=== PATIENT | female | born 1965 | race Caucasian/White ===

== ENCOUNTER 2016-08-19 13:08 | Emergency (ER) | payer OTHER ==
[~2016-08-19] VITALS: Ht 175.3 cm; Wt 119.0 kg
[~2016-08-19 13:08] MED LIST: AUG875 PO; DIVA500T7 PO; HC1C30 TOP; HYDR-3498 PO; HYDR-762 PO; LORA-441 PO; LORA1TAB PO; MAG355OR15 PO; METO100T13 PO; NIFE90TA21 PO; NOV SC; ONDA4TAB35 PO; ZOF8 PO
[2016-08-19 14:04] VITALS: Ht 175.3 cm; Wt 119.0 kg
[2016-08-19] MEDS ORDERED: ONDANSETRON (ODT) 4 MG TAB ODT STA (19:24)
[2016-08-19] MEDS ORDERED: HYDROmorphONE 1 MG/ML SYG IM STA (19:24)
[2016-08-19] MEDS ORDERED: NICARDipine HCL 30 MG CAPSULE PO ONE (19:30)
[2016-08-19 19:52] LABS: ADD SCAN DIFF NO; BASOPHILS % 0.5 % (0.0-2.0); EOSINOPHILS # 0.1 10^3/ul (0.0-0.5); HEMATOCRIT 37.5 % (37.0-47.0); HEMOGLOBIN 12.4 g/dl (12.0-16.0); LYMPHOCYTES # 1.5 10^3/ul (0.8-2.9); MEAN CORPUSCULAR HEMOGLOBIN 27.9 pg (29.0-33.0); MEAN CORPUSCULAR HGB CONC 33.1 g/dl (32.0-37.0); MEAN CORPUSCULAR VOLUME 84.5 fl (82.0-101.0); MEAN PLATELET VOLUME 9.6 fl (7.4-10.4); MONOCYTE # 0.4 10^3/ul (0.3-0.9); NEUTROPHIL # 5.2 10^3/ul (1.6-7.5); NEUTROPHILS % 71.4 % (39.0-77.0); PLATELET COUNT 285 10^3/UL (140-415); RED BLOOD COUNT 4.44 10^6/ul (4.20-5.40); RED CELL DISTRIBUTION WIDTH 13.8 % (11.5-14.5); WHITE BLOOD COUNT 7.3 10^3/ul (4.8-10.8)
[2016-08-19 20:04] LABS: ALBUMIN 4.7 g/dl (3.3-4.9); CHLORIDE 102 mmol/L (97-110); SODIUM 141 mmol/L (135-144)
[2016-08-19 20:05] LABS: POTASSIUM 3.6 mmol/L (3.5-5.1)
[2016-08-19 20:07] LABS: ALBUMIN/GLOBULIN RATIO 1.51; ALKALINE PHOSPHATASE 83 IU/L (42-121); ANION GAP 18 (8-16); ASPARTATE AMINO TRANSFERASE 17 IU/L (15-46); BILIRUBIN,INDIRECT 0.6 mg/dl (0-1.1); BILIRUBIN,TOTAL 0.6 mg/dl (0.2-1.3); BLOOD UREA NITROGEN 9 mg/dl (7-20); CARBON DIOXIDE 25 mmol/L (21-31); CREATININE 0.53 mg/dl (0.44-1.00); TOTAL PROTEIN 7.8 g/dl (6.1-8.1)
[2016-08-19 20:08] LABS: ALANINE AMINOTRANSFERASE 27 IU/L (13-69); CALCIUM 10.1 mg/dl (8.4-10.2); GLUCOSE 195 mg/dl (70-220)
[2016-08-19 20:10] LABS: ADD UMIC YES; URINE BILIRUBIN (Dip) NEGATIVE (NEGATIVE); URINE BLOOD (Dip) 3+ (NEGATIVE); URINE COLOR YELLOW (YELLOW); URINE GLUCOSE (Dip) NEGATIVE (NEGATIVE); URINE KETONES (Dip) NEGATIVE (NEGATIVE); URINE LEUKOCYTE ESTERASE (Dip) TRACE (NEGATIVE); URINE NITRITE (Dip) NEGATIVE (NEGATIVE); URINE TOTAL PROTEIN (Dip) TRACE (NEGATIVE); URINE UROBILINOGEN (Dip) 0.2 E.U./dL (0.1-1.0)
[2016-08-19 20:21] LABS: TROPONIN-I < 0.012 ng/ml (0.00-0.12)
[2016-08-19] MEDS ORDERED: LEVO500T72 PO (20:24)
[2016-08-19 20:25] LABS: BARBITURATES Negative (NEGATIVE); BENZODIAZEPINES Negative (NEGATIVE)
--- NOTE | 2016-08-19 20:27 | ERD ---
ER Documentation Chief Complaint Date/Time DATE: 08/19/16 TIME: 20:25 Chief Complaint Pt with L flank pain since yesterday, dx with kidney stone, Hypertensive. HPI 50-year-old woman complains of left flank pain since yesterday with hematuria. She also complains of hypertension despite using her medications as prescribed. She has a long history of renal stones and has had multiple previous CAT scans the last one being about 1 month ago. She denies recent antibiotic use. She denies chest pain or shortness of breath, no fevers or chills, no vomiting or diarrhea. Patient denies headache or blurry vision. She is requesting a PICC line for opioid analgesics ROS All systems reviewed and are negative except as per history of present illness. Medications Home Meds Active Scripts Levofloxacin* (Levaquin*) 500 Mg Tablet, 500 MG PO DAILY for 5 Days, TAB Prov:SCOTTIE FORBES MD 08/19/16 Hydrocodone Bit-Acetaminophen* (Oden*) 5-325 Mg Tab, 1 TAB PO Q6 Y for PAIN, # 14 TAB Prov:JOYCE WOLFE NP 04/16/15 Hydrocodone Bit-Acetaminophen* (Oden*) 10-325 Mg Tablet, 1 TAB PO Q6 Y for PAIN , #14 TAB Prov:ESTHER MULLINS PA-C 04/06/15 Lorazepam* (Lorazepam*) 1 Mg Tablet, 1 MG PO Q8H Y for ANXIETY, #10 Prov:ESTHER MULLINS PA-C 04/06/15 Ondansetron Hcl* (Zofran* ODT) 4 mg -ODT Tab.disper, 4 MG PO Q6 Y for NAUSEA AND /OR VOMITING, #10 TAB Prov:LEONJENNIE CORTEZ 04/01/15 Lorazepam* (Ativan*) 0.5 Mg Tablet, 0.5 MG PO Q8, #5 Prov:LEONJENNIE CORTEZ C 04/01/15 Hydrocodone Bit-Acetaminophen* (Oden*) 5-325 Mg Tab, 1 TAB PO Q6 Y for PAIN, # 10 TAB Prov:LEONJENNIE CORTEZ C 04/01/15 Hydrocodone Bit-Acetaminophen* (Oden*) 5-325 Mg Tab, 1 TAB PO Q4H Y for PAIN for 10 Days, TAB Prov:LEONJENNIE CORTEZ Ambrocio 04/01/15 Amoxicillin-Clavulanate K* (Augmentin*) 875 Mg Tab, 875 MG PO BID for 7 Days, TAB Prov:JENNIE QUINTERO Ambrocio 04/01/15 Lorazepam* (Lorazepam*) 1 Mg Tablet, 1 MG PO DAILY Y for ANXIETY, #2 TAB 0 Refills Prov:CHRISTIANOYASMIN PA-C 03/10/15 Hydrocodone Bit-Acetaminophen* (Oden*) 10-325 Mg Tablet, 1 TAB PO DAILY Y for PAIN for 5 Days, TAB Prov:CHRISTIANOYASMIN PA-C 03/10/15 Hydrocodone Bit-Acetaminophen* (Oden*) 5-325 Mg Tab, 1 TAB PO Q6 Y for PAIN, # 5 TAB Prov:SCOTTIE FORBES MD 02/23/15 Mag Hydrox/Al Hydrox/Simeth (Maalox Ms Liquid) 360 Ml Oral.susp, 2 TSP PO TID, # 24 OZ Prov:SCOTTIE FORBES MD 02/23/15 Hydrocortisone* Topical (Hydrocortisone* Topical) 1%-28.35 Gm Cream..g., 1 APPLIC TOP Q6 Y for ITCHING, #1 TUB Prov:DAGOBERTO HUBBARD 02/06/15 Hydrocodone Bit-Acetaminophen* (Oden*) 5-325 Mg Tab, 1 TAB PO Q6 Y for PAIN, # 7 TAB Prov:DAGOBERTO HUBBARD 02/06/15 Ondansetron Hcl* (Zofran* ODT) 8 mg -ODT Tab.disper, 8 MG PO Q6H Y for NAUSEA AND OR VOMITING, #10 TAB Prov:LUIS MIGUEL FOSTER DO 12/20/14 Reported Medications Metoprolol Succinate* (Toprol XL*) 100 Mg Tab.sr.24h, 100 MG PO DAILY, TAB 02/14/14 Insulin Aspart* (Novolog Insulin Vial*) 100 U/Ml Vial, 4 UNIT SC DAILY, VIAL 02/14/14 Divalproex Sodium* (Depakote ER*) 500 Mg Tabsr, 500 MG PO DAILY, TAB.SA 02/14/14 Nifedipine* (Nifedipine ER*) 90 Mg Tablet.sa, 90 MG PO daily 11/07/12 Allergies Allergies: Coded Allergies: ceftriaxone (Verified Allergy, Unknown, 09/06/15) ketorolac tromethamine (Verified Allergy, Unknown, 09/06/15) levetiracetam (Verified Allergy, Unknown, 09/06/15) phenytoin (Verified Allergy, Unknown, 09/06/15) aspirin (Verified Adverse Reaction, Severe, 09/06/15) ANAPHYLXIS ketorolac (Verified Adverse Reaction, Severe, 09/06/15) ANAPHYLAXIS Uncoded Allergies: ERYTHROMYACIN (Allergy, Unknown, 10/24/13) SULFA (Adverse Reaction, Severe, ANAPHYLAXIS, 01/10/11) PMhx/Soc Chronic pain syndrome, opioid dependence, multiple NSAID allergies, chronic kidney stones, anxiety, hypertension History of Surgery: Yes (tonsilectomy,appendectomy, RIGHT ULNAR NERVE SX, COLON RESECTION) Anesthesia Reaction: No Hx Neurological Disorder: No Hx Respiratory Disorders: No Hx Cardiac Disorders: Yes (HTN, DM, C-DIFF, SWEET SYNDROME) Hx Psychiatric Problems: No Hx Miscellaneous Medical Probl: Yes ( multiple back issues, large uterine fibroid, SWEET SYN, kidney stones) Hx Alcohol Use: Yes (OCCASIONAL) Hx Substance Use: No Hx Tobacco Use: No Smoking Status: Never smoker FmHx Family History: No diabetes Physical Exam Vitals Vital Signs Date Time Temp Pulse Resp B/P Pulse Ox O2 Delivery O2 Flow Rate FiO2 08/19/16 20:33 98.2 73 18 147/89 100 Room Air 08/19/16 19:29 98.0 98 16 186/112 100 Room Air 08/19/16 18:14 98.2 63 16 193/112 100 Room Air 08/19/16 14:04 99.1 60 20 231/126 100 Physical Exam GENERAL: Well-developed, well-nourished, well-hydrated, in no apparent distress , looks nontoxic in appearance HEENT: Moist mucous membranes, pink conjunctiva, no cervical spine tenderness or step-off deformities, no goiter, no jaundice or icterus, extraocular movements intact without pain. No submandibular induration, and no pharyngeal erythema NEURO: Alert and oriented 3, cranial nerves II through XII intact bilaterally, pupils equal round reactive to light, no focal deficits or facial asymmetry, sensation intact distally Strength 5/5 in upper and lower extremities bilaterally CARDIAC: Regular rate and rhythm, no murmurs rubs or gallops LUNGS: Clear bilaterally no wheezing crackles or stridor ABDOMEN: Soft nontender, no guarding, no rigidity, no rebound, no psoas sign no obturator sign. Normoactive bowel sounds SKIN: Warm and dry to touch, no abrasions, contusions, or hematomas, no lacerations, no ecchymosis, no target lesions, and without ulcers EXTREMITIES: No clubbing cyanosis or edema, calves are bilaterally symmetrical, no Homans sign, no popliteal cord sign. Distal pulses equal and bilateral PSYCH: Normal affect without agitation or irritability Result Diagram: 08/19/16193908/19/161939 Results 24 hrs Laboratory Tests Test 08/19/16 19:40 White Blood Count 7.310^3/ul Red Blood Count 4.4410^6/ul Hemoglobin 12.4g/dl Hematocrit 37.5% Mean Corpuscular Volume 84.5fl Mean Corpuscular Hemoglobin 27.9pg Mean Corpuscular Hemoglobin Concent 33.1g/dl Red Cell Distribution Width 13.8% Platelet Count 46848^3/UL Mean Platelet Volume 9.6fl Neutrophils % 71.4% Lymphocytes % 21.0% Monocytes % 6.0% Eosinophils % 1.0% Basophils % 0.5% Nucleated Red Blood Cells % 0.0/100WBC Neutrophils # 5.210^3/ul Lymphocytes # 1.510^3/ul Monocytes # 0.410^3/ul Eosinophils # 0.110^3/ul Basophils # 0.010^3/ul Nucleated Red Blood Cells # 0.010^3/ul Urine Color YELLOW Urine Clarity CLEAR Urine pH 6.0 Urine Specific [place] 1.020 Urine Ketones NEGATIVE Urine Nitrite NEGATIVE Urine Bilirubin NEGATIVE Urine Urobilinogen 0.2 E.U./dL Urine Leukocyte Esterase TRACE Urine Microscopic RBC >200/HPF Urine Microscopic WBC 0-2/HPF Urine Squamous Epithelial Cells FEW Urine Bacteria MODERATE Urine Hemoglobin 3+ Urine Glucose NEGATIVE% Urine Total Protein TRACE Sodium Level 141mmol/L Potassium Level 3.6mmol/L Chloride Level 102mmol/L Carbon Dioxide Level 25mmol/L Anion Gap 18 Blood Urea Nitrogen 9mg/dl Creatinine 0.53mg/dl Glucose Level 195mg/dl Calcium Level 10.1mg/dl Total Bilirubin 0.6mg/dl Direct Bilirubin 0.00mg/dl Indirect Bilirubin 0.6mg/dl Aspartate Amino Transf (AST/SGOT) 17IU/L Alanine Aminotransferase (ALT/SGPT) 27IU/L Alkaline Phosphatase 83IU/L Troponin I < 0.012ng/ml Total Protein 7.8g/dl Albumin 4.7g/dl Globulin 3.10g/dl Albumin/Globulin Ratio 1.51 Lipase 23U/L Urine Opiates Screen Positive Urine Barbiturates Negative Urine Amphetamines Screen Negative Urine Benzodiazepines Screen Negative Urine Cocaine Screen Negative Urine Cannabinoids Negative Current Medications Medications (Trade) Dose Ordered Sig/Ermelinda Route PRN Reason Start Time Stop Time Status Last Admin Dose Admin Hydromorphone HCl (Dilaudid) 1 mg ONCE STAT IM 08/19/16 19:24 08/19/16 19:26 DC 08/19/16 19:46 Ondansetron HCl (Zofran Odt) 4 mg ONCE STAT ODT 08/19/16 19:24 08/19/16 19:26 DC 08/19/16 19:45 Nicardipine HCl (Cardene) 30 mg ONCE ONCE PO 08/19/16 19:30 08/19/16 19:31 DC 08/19/16 19:45 Procedures/MDM Patient was placed on air sampling and monitoring rhythm strip revealed a sinus rhythm at about 60 bpm with upright P and T waves. Patient was afebrile. EKG performed, read by me: 63 bpm, normal sinus rhythm, normal axis, no acute ST segment changes, narrow QRS complex, with good R-wave progression in precordial leads. I reviewed the patient's recent CT scan of the abdomen and pelvis which was performed just about 1 month ago, reveals a punctate nonobstructing left renal calculus. No other pathology was noted. Patient refused further imaging and at this time I think risks of further imaging outweigh any benefits. Drug screen positive for opioids prior to my administration, although for complaints of pain I did treat her here with hydromorphone 1 mg intramuscular injection, Zofran 4 mg ODT, nicardipine 30 mg p.o. for hypertension. Her hypertension and pain resolved. CBC was unremarkable, electrolytes normal, liver function tests normal, troponin negative. Urine analysis revealed microscopic blood and 1+ leukocyte esterase, I will treat the patient with oral antibiotics as an outpatient. Her blood pressure did improve and felt to within normal limits, pain is completely resolved, she will be discharged with antibiotics although I deferred opioid therapy to her PMD and pain specialist. Differential diagnoses considered, included but not limited to acute coronary syndrome, pulmonary embolism, aortic dissection, abdominal aortic aneurysm, sepsis, stroke, meningitis, encephalitis, pneumonia, appendicitis, cholecystitis , bowel obstruction, pyelonephritis, nephrolithiasis, cystitis, as well as metabolic, hematologic, and electrolyte abnormalities. As well as abscess, cellulitis, fractures, and dislocations. Patient feels much better at this time, and vital signs are normal, symptoms have improved. I did give strict instructions to return to the ED if symptoms continue or worsen, patient will otherwise follow-up with primary care physician. Patient understood instructions and agreed to plan. Departure Diagnosis: Primary Impression: Drug-seeking behavior Additional Impressions: Hematuria Renal calculus, left Hypertensive urgency Condition: Good Patient Instructions: Hematuria, Hypertension, Established SCOTTIE FORBES MD Aug 19, 2016 20:27
[2016-08-19 20:29] LABS: CANNABINOIDS Negative (NEGATIVE); COCAINE Negative (NEGATIVE); OPIATES Positive (NEGATIVE)
[2016-08-19 20:33] VITALS: BP 147/89; PULSE 73; RESP 18; TEMP 98.2
[2016-08-19 20:41] LABS: BACTERIA,URINE MODERATE; SQUAMOUS EPITHELIAL CELL,UR FEW; URINE RBCS >200 /HPF (0)
== END 2016-08-19 21:11 | disposition home or self-care (01) ==
LOC: E/R 13:08
DX: Z72.89 Other problems related to lifestyle (principal); R31.9 Hematuria, unspecified; N20.0 Calculus of kidney; I16.0 Hypertensive urgency; I10 Essential (primary) hypertension; E11.9 Type 2 diabetes mellitus without complications; Z79.4 Long term (current) use of insulin
CPT/HCPCS: 80053; 80307; 81001; 83690; 84484; 85025; 93005; 96372; J1170; Z7502; Z7610; 81003